=== PATIENT | male | born 1960 | race Caucasian/White ===

== ENCOUNTER 2020-12-23 14:44 | Emergency (ER) | payer OTHER ==
[~2020-12-23] VITALS: Ht 175.2 cm; Wt 65.8 kg
[~2020-12-23 14:44] MED LIST: DEXAMETHASONE4 MG PO; KRISTALOSE10 GM/PACK PO; LEVOTHYROXINE0.1 MG PO; ONDANSETRON ODT8 MG PO; OXYCODONE HCL5 M1 PO; PHENERGAN25 M3 PO
[2020-12-23 15:31] LABS: BASO % 0.1 % (0.0-1.0); EOS % 0.2 % (1.0-4.0); HEMATOCRIT 48.7 % (42.0-52.0); LYMPH % 9.5 % (27.0-41.0); MEAN CELL VOLUME 94.2 fl (80.0-94.0); MEAN CORPUSCULAR HGB 31.9 pg (27.0-31.0); MEAN CORPUSCULAR HGB CONC 33.9 g/dl (33.0-37.0); MEAN PLATELET VOLUME 10.1 fl (9.6-12.3); MONO # 0.8 10*3/uL (0.1-1.0); MONO % 7.9 % (3.0-9.0); NEUT # 8.3 10*3/uL (2.3-7.9); PLATELET COUNT AUTOMATED 160 10*3/uL (130-400); RED BLOOD COUNT 5.17 10*6/uL (4.50-5.90); RED CELL DISTRI WIDTH 12.3 % (0-14.5); WHITE BLOOD COUNT 10.2 10*3/uL (4.8-10.8)
[2020-12-23 16:03] LABS: ALBUMIN 4.2 gm/dl (3.1-4.5); ALKALINE PHOSPHATASE 91 U/L (45-117); BUN 28 mg/dl (7-24); CHLORIDE 100 mmol/L (98-107); CREATININE 1.16 mg/dL (0.70-1.30); LIPASE 93 U/L (73-393); POTASSIUM 3.5 mmol/L (3.5-5.1); SGOT/AST 17 IU/L (3-35); SGPT/ALT 13 U/L (12-78); SODIUM 134 mmol/L (136-145); TOTAL PROTEIN 7.9 gm/dL (6.4-8.2)
[2020-12-23 16:05] LABS: TROPONIN I < 0.015 ng/ml (<0.045)
[2020-12-23] MEDS ORDERED: ZOFRAN4 MG PO (17:13)
== END 2020-12-23 17:45 | disposition home or self-care (01) ==
LOC: ED 14:44
PROVIDERS: Physician Assistant
DX: K52.9 Noninfective gastroenteritis and colitis, unspecified (principal); R11.2 Nausea with vomiting, unspecified; C02.9 Malignant neoplasm of tongue, unspecified; C14.0 Malignant neoplasm of pharynx, unspecified; Z79.899 Other long term (current) drug therapy; Z90.89 Acquired absence of other organs

== ENCOUNTER → 2021-02-02 | Outpatient (CLI) | payer OTHER ==
[~2021-02-02] MED LIST changes: +ZOFRAN4 MG PO
== END ==
LOC: WOUNDCARE 01:16
PROVIDERS: ATTEND Nurse Practitioner
DX: L59.8 Other specified disorders of the skin and subcutaneous tissue related to radiation (principal); M27.8 Other specified diseases of jaws; E03.9 Hypothyroidism, unspecified; E55.9 Vitamin D deficiency, unspecified; E78.2 Mixed hyperlipidemia; F12.90 Cannabis use, unspecified, uncomplicated; Z79.899 Other long term (current) drug therapy; Z87.891 Personal history of nicotine dependence

== ENCOUNTER → 2021-02-11 | Outpatient (CLI) | payer OTHER | END | disposition home or self-care (01) | LOC: WOUNDCARE 02:18 | PROVIDERS: ATTEND Nurse Practitioner | DX: L59.8 Other specified disorders of the skin and subcutaneous tissue related to radiation (principal); M27.8 Other specified diseases of jaws; M87.88 Other osteonecrosis, other site; E03.9 Hypothyroidism, unspecified; E55.9 Vitamin D deficiency, unspecified; E78.2 Mixed hyperlipidemia; F12.90 Cannabis use, unspecified, uncomplicated; Z79.899 Other long term (current) drug therapy; Y84.2 Radiological procedure and radiotherapy as the cause of abnormal reaction of the patient, or of later complication, without mention of misadventure at the time of the procedure ==

== ENCOUNTER → 2021-02-12 | Outpatient (CLI) | payer OTHER | END | disposition home or self-care (01) | LOC: WOUNDCARE 00:26 | PROVIDERS: ATTEND Nurse Practitioner | DX: L59.8 Other specified disorders of the skin and subcutaneous tissue related to radiation (principal); M87.88 Other osteonecrosis, other site; M27.8 Other specified diseases of jaws; E03.9 Hypothyroidism, unspecified; E55.9 Vitamin D deficiency, unspecified; E78.2 Mixed hyperlipidemia; F12.90 Cannabis use, unspecified, uncomplicated; Z79.899 Other long term (current) drug therapy; Y84.2 Radiological procedure and radiotherapy as the cause of abnormal reaction of the patient, or of later complication, without mention of misadventure at the time of the procedure ==

== ENCOUNTER → 2021-02-13 | Outpatient (CLI) | payer OTHER | END | disposition home or self-care (01) | LOC: WOUNDCARE 04:04 | PROVIDERS: ATTEND Nurse Practitioner | DX: L59.8 Other specified disorders of the skin and subcutaneous tissue related to radiation (principal); M87.88 Other osteonecrosis, other site; M27.8 Other specified diseases of jaws; E03.9 Hypothyroidism, unspecified; E55.9 Vitamin D deficiency, unspecified; E78.2 Mixed hyperlipidemia; F12.90 Cannabis use, unspecified, uncomplicated; Z79.899 Other long term (current) drug therapy; Y84.2 Radiological procedure and radiotherapy as the cause of abnormal reaction of the patient, or of later complication, without mention of misadventure at the time of the procedure ==

== ENCOUNTER → 2021-02-17 | Outpatient (CLI) | payer OTHER | END | disposition home or self-care (01) | LOC: WOUNDCARE 00:37 | PROVIDERS: ATTEND Nurse Practitioner | DX: L59.8 Other specified disorders of the skin and subcutaneous tissue related to radiation (principal); M87.88 Other osteonecrosis, other site; M27.8 Other specified diseases of jaws; E03.9 Hypothyroidism, unspecified; E55.9 Vitamin D deficiency, unspecified; E78.2 Mixed hyperlipidemia; F12.90 Cannabis use, unspecified, uncomplicated; Z79.899 Other long term (current) drug therapy; Y84.2 Radiological procedure and radiotherapy as the cause of abnormal reaction of the patient, or of later complication, without mention of misadventure at the time of the procedure ==

== ENCOUNTER → 2021-02-18 | Outpatient (CLI) | payer OTHER | END | disposition home or self-care (01) | LOC: WOUNDCARE 01:21 | PROVIDERS: ATTEND Nurse Practitioner | DX: L59.8 Other specified disorders of the skin and subcutaneous tissue related to radiation (principal); M87.88 Other osteonecrosis, other site; M27.8 Other specified diseases of jaws; E03.9 Hypothyroidism, unspecified; E78.2 Mixed hyperlipidemia; E55.9 Vitamin D deficiency, unspecified; Z79.899 Other long term (current) drug therapy; Y84.2 Radiological procedure and radiotherapy as the cause of abnormal reaction of the patient, or of later complication, without mention of misadventure at the time of the procedure ==

== ENCOUNTER → 2021-02-24 | Outpatient (CLI) | payer OTHER | LOC: WOUNDCARE 03:22 | PROVIDERS: ATTEND Nurse Practitioner | DX: L59.8 Other specified disorders of the skin and subcutaneous tissue related to radiation (principal); M87.88 Other osteonecrosis, other site; M27.8 Other specified diseases of jaws; E78.5 Hyperlipidemia, unspecified; E55.9 Vitamin D deficiency, unspecified; F12.90 Cannabis use, unspecified, uncomplicated; E03.9 Hypothyroidism, unspecified; Z79.899 Other long term (current) drug therapy; Y84.2 Radiological procedure and radiotherapy as the cause of abnormal reaction of the patient, or of later complication, without mention of misadventure at the time of the procedure ==

== ENCOUNTER → 2021-02-25 | Outpatient (CLI) | payer OTHER | LOC: WOUNDCARE 02:55 | PROVIDERS: ATTEND Nurse Practitioner | DX: L59.8 Other specified disorders of the skin and subcutaneous tissue related to radiation (principal); M87.88 Other osteonecrosis, other site; M27.8 Other specified diseases of jaws; E78.5 Hyperlipidemia, unspecified; E55.9 Vitamin D deficiency, unspecified; F12.90 Cannabis use, unspecified, uncomplicated; E03.9 Hypothyroidism, unspecified; Z79.899 Other long term (current) drug therapy; Y84.2 Radiological procedure and radiotherapy as the cause of abnormal reaction of the patient, or of later complication, without mention of misadventure at the time of the procedure ==

== ENCOUNTER → 2021-02-26 | Outpatient (CLI) | payer OTHER | LOC: WOUNDCARE 01:12 | PROVIDERS: ATTEND Nurse Practitioner | DX: L59.8 Other specified disorders of the skin and subcutaneous tissue related to radiation (principal); M87.88 Other osteonecrosis, other site; M27.8 Other specified diseases of jaws; E78.5 Hyperlipidemia, unspecified; E55.9 Vitamin D deficiency, unspecified; E03.9 Hypothyroidism, unspecified; F12.90 Cannabis use, unspecified, uncomplicated; Z79.899 Other long term (current) drug therapy; Y84.2 Radiological procedure and radiotherapy as the cause of abnormal reaction of the patient, or of later complication, without mention of misadventure at the time of the procedure ==

== ENCOUNTER → 2021-02-27 | Outpatient (CLI) | payer OTHER | LOC: WOUNDCARE 01:04 | PROVIDERS: ATTEND Nurse Practitioner | DX: L59.8 Other specified disorders of the skin and subcutaneous tissue related to radiation (principal); M87.88 Other osteonecrosis, other site; M27.8 Other specified diseases of jaws; E78.5 Hyperlipidemia, unspecified; E55.9 Vitamin D deficiency, unspecified; E03.9 Hypothyroidism, unspecified; F12.90 Cannabis use, unspecified, uncomplicated; Z79.899 Other long term (current) drug therapy; Y84.2 Radiological procedure and radiotherapy as the cause of abnormal reaction of the patient, or of later complication, without mention of misadventure at the time of the procedure ==

== ENCOUNTER → 2021-03-02 | Outpatient (CLI) | payer OTHER | LOC: WOUNDCARE 00:41 | PROVIDERS: ATTEND Nurse Practitioner | DX: L59.8 Other specified disorders of the skin and subcutaneous tissue related to radiation (principal); M87.88 Other osteonecrosis, other site; M27.8 Other specified diseases of jaws; E78.5 Hyperlipidemia, unspecified; E55.9 Vitamin D deficiency, unspecified; E03.9 Hypothyroidism, unspecified; F12.90 Cannabis use, unspecified, uncomplicated; Z79.899 Other long term (current) drug therapy; Y84.2 Radiological procedure and radiotherapy as the cause of abnormal reaction of the patient, or of later complication, without mention of misadventure at the time of the procedure ==

== ENCOUNTER → 2021-03-03 | Outpatient (CLI) | payer OTHER | LOC: WOUNDCARE 00:37 | PROVIDERS: ATTEND Nurse Practitioner | DX: L59.8 Other specified disorders of the skin and subcutaneous tissue related to radiation (principal); M87.88 Other osteonecrosis, other site; M27.8 Other specified diseases of jaws; E78.5 Hyperlipidemia, unspecified; E55.9 Vitamin D deficiency, unspecified; E03.9 Hypothyroidism, unspecified; F12.90 Cannabis use, unspecified, uncomplicated; Z79.899 Other long term (current) drug therapy; Y84.2 Radiological procedure and radiotherapy as the cause of abnormal reaction of the patient, or of later complication, without mention of misadventure at the time of the procedure ==

== ENCOUNTER → 2021-03-04 | Outpatient (CLI) | payer OTHER | LOC: WOUNDCARE 00:38 | PROVIDERS: ATTEND Nurse Practitioner | DX: L59.8 Other specified disorders of the skin and subcutaneous tissue related to radiation (principal); M87.88 Other osteonecrosis, other site; M27.8 Other specified diseases of jaws; E87.5 Hyperkalemia; E55.9 Vitamin D deficiency, unspecified; E03.9 Hypothyroidism, unspecified; F12.90 Cannabis use, unspecified, uncomplicated; Z79.899 Other long term (current) drug therapy; Y84.2 Radiological procedure and radiotherapy as the cause of abnormal reaction of the patient, or of later complication, without mention of misadventure at the time of the procedure ==

== ENCOUNTER → 2021-03-09 | Outpatient (CLI) | payer OTHER | LOC: WOUNDCARE 01:25 | PROVIDERS: ATTEND Nurse Practitioner | DX: L59.8 Other specified disorders of the skin and subcutaneous tissue related to radiation (principal); M87.88 Other osteonecrosis, other site; M27.8 Other specified diseases of jaws; E78.5 Hyperlipidemia, unspecified; E55.9 Vitamin D deficiency, unspecified; E03.9 Hypothyroidism, unspecified; F12.90 Cannabis use, unspecified, uncomplicated; Z79.899 Other long term (current) drug therapy; Y84.2 Radiological procedure and radiotherapy as the cause of abnormal reaction of the patient, or of later complication, without mention of misadventure at the time of the procedure ==